=== PATIENT | female | born 1990 ===

== ENCOUNTER 2017-04-01 15:01 | Inpatient (IN) ==
[2017-04-01] MEDS ORDERED: ONDANSETRON 4 MG/2 ML VIAL IV PRN (15:16)
[2017-04-01] MEDS ORDERED: MEPERIDINE 50 MG/1 ML VIAL IV PRN (15:16)
[2017-04-01] MEDS ORDERED: DINOPROSTONE VAG GEL 10 MG SYRINGE VAG ONE (15:29)
[2017-04-01 15:32] LABS: Basophils % 0.4 % (0.0-0.8); Eosinophils % 0.4 % (0.00-10.9); Hematocrit 38.1 VOL% (35.7-47.0); Hemoglobin 13.3 GM/DL (12.0-16.0); Immature Granulocytes % 0.7 %; Immature Granulocytes Absolute 0.08 #; Lymphocytes # 2.1 10*3/uL (1.4-4.0); Mean Corpuscular HGB Conc 34.9 GM/DL (32-36); Mean Corpuscular Hemoglobin 31 PG (27-34); Mean Platelet Volume 9.6 FL (9.6-12.0); Monocytes # 0.5 10*3/uL (0.11-0.8); Monocytes % 4.2 % (1.7-12.7); Neutrophils # 8.4 10*3/uL (1.4-7.4); Neutrophils % 75.3 % (38.7-73.9); Platelet Count 219 T/CUMM (130-400); Red Blood Count 4.33 MC/CUMM (3.8-5.5); Red Cell Distribution Width 13.5 % (9.3-17.3); White Blood Count 11.1 T/CUMM (4-12)
[2017-04-01] MEDS: LACTATED RINGERS 1,000 ML IV SCH ×2 (15:45→21:22)
[2017-04-01 15:56] LABS: Albumin 2.9 G/DL (3.4-5.0); Bilirubin,Total 0.7 MG/DL (0.2-1.0); Calcium 8.8 MG/DL (8.5-10.1); Osmolality,Calculated 272.7 MOS/KG (273-304); Potassium 4.1 MMOL/L (3.5-5.1); Total Protein 6.2 G/DL (6.4-8.3); Uric Acid 4.7 MG/DL (2.6-6.0)
--- NOTE | 2017-04-01 18:44 | OB/GYN History & Physical ---
History of Present Illness Chief complaint: M for elective induction of labor due to term at 39 weeks. History of present illness: Ms. Blanc is a 26 year old female primigravida who presented to the labor department for elective induction of labor due to term at 39 weeks. Her JAZ is 04/08/2017 estimated gestational age of 39 weeks. The risk and benefits has been thoroughly discussed with this patient and significant other, plan of care has been discussed with Dr. Wood and all parties are in agreement with plan. The patient began her care at the [facility] and the [facility]. She received routine care and her course was uneventful. labs: She is O+, RPR is nonreactive, rubella is immune, Pap smear is within normal limits, hepatitis B negative, HIV negative, GBS culture negative. Review of systems is negative with exception of above. Home Medications Medication Instructions Recorded Confirmed Type Ferrous Sulfate [Iron] 325 mg PO DAILY 04/01/17 04/01/17 History Vit No.130/Iron/Folic 1 each PO DAILY 04/01/17 04/01/17 History [ Vitamins] Allergies Allergy/AdvReac Type Severity Reaction Status Date / Time No Known Allergies Allergy Verified 04/01/17 15:16 12 point system: reviewed and no additional remarkable complaints except as stated Medical,Surgical,& Family Hx - Medical History Respiratory: History of: Asthma (Exercise-induced only) Reproductive: No history of: Complication - Surgical History Cardiac Surgeries: Patient Denies: Cardiac Catheterization Neurologic Surgeries: Patient denies: Neurologic Surgery Abdominal Surgeries: Surgical HX of: Abdominal Surgery (She had colon surgery as an infant, but does not know the reason why.) Additional Surgical History: Patient received back surgery when she was the infant. However, she is unaware of the type of condition she had that required this type of surgery. 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 - Constitutional Vitals: Vital Signs Temp Pulse Resp BP Pulse Ox 04/01/17 16:00 96.5 F L 91 H 18 119/68 99 General appearance: no acute distress - Respiratory Respiratory exam: Present: clear to auscultation bilaterally - Cardiovascular Cardiovascular exam: Present: regular rate and rhythm - GI/Abdominal GI/Abdominal exam: Present: normal bowel sounds, soft - Extremities Exam Extremities exam: Present: normal inspection - Back Exam Back exam: Present: normal inspection - Neurological Exam Neurological exam: Present: alert, oriented X3 - Psychiatric Psychiatric exam: Present: normal affect, normal mood - Skin Skin exam: Present: normal color, warm Assessment and Plan (1) 39 weeks gestation of Status: Acute Assessment and plan: Admit IV fluids Prostin gel per protocol IV Pitocin per protocol if indicated Epidural anesthesia if desired Please rupture membranes when appropriate Anticipate Current Visit: Yes Results - Labs CBC & BMP: 04/01/17 15:26 04/01/17 15:26
[2017-04-01] MEDS ORDERED: hydrOXYzine HCL 25 MG/1 ML VIAL IM PRN (21:47)
[2017-04-01] MEDS ORDERED: diphenhydrAMINE 50 MG/1 ML VIAL IV PRN (21:47)
[2017-04-01] MEDS ORDERED: CITRIC ACID/SODIUM CITRATE 30 ML UDCUP PO ONE (21:47)
[2017-04-01] MEDS ORDERED: PROMETHAZINE 25 MG/1 ML VIAL IM ONE (21:47)
[2017-04-01] MEDS ORDERED: fentaNYL 2 MCG/ROPIV 0.2% EPID 150 ML EPIDURAL SCH (21:47)
[2017-04-01] MEDS ORDERED: ePHEDrine 50 MG/ML AMP IV PRN (21:47)
[2017-04-01] MEDS ORDERED: FAMOTIDINE 20 MG/2 ML VIAL IV ONE (21:47)
[2017-04-01 22:17] LABS: Basophils % 0.3 % (0.0-0.8); Eosinophils # 0.1 10*3/uL (0.0-0.87); Eosinophils % 0.8 % (0.00-10.9); Hemoglobin 12.8 GM/DL (12.0-16.0); Immature Granulocytes % 0.9 %; Immature Granulocytes Absolute 0.08 #; Lymphocytes # 2.4 10*3/uL (1.4-4.0); Mean Corpuscular HGB Conc 34.6 GM/DL (32-36); Mean Corpuscular Hemoglobin 31 PG (27-34); Mean Corpuscular Volume 88.3 FL (87-102); Mean Platelet Volume 9.7 FL (9.6-12.0); Monocytes # 0.6 10*3/uL (0.11-0.8); Monocytes % 6.7 % (1.7-12.7); Neutrophils # 5.7 10*3/uL (1.4-7.4); Neutrophils % 64.3 % (38.7-73.9); Platelet Count 211 T/CUMM (130-400); Red Blood Count 4.19 MC/CUMM (3.8-5.5); Red Cell Distribution Width 13.4 % (9.3-17.3); White Blood Count 8.9 T/CUMM (4-12)
[2017-04-02] MEDS ORDERED: OXYTOCIN/LR 20 UNIT/1,000 ML BAG IV SCH (02:00)
[2017-04-02] MEDS: LACTATED RINGERS 1,000 ML IV SCH (03:00)
--- NOTE | 2017-04-02 09:28 | Event Note ---
Ms. Blanc is 1 cm dilated still about 50% effaced vertex presenting at -3 station. However because of a surgery the patient had as an infant anesthesia was unable to insert an epidural. Therefore the patient desires an elective section due to the fact that she cannot receive an epidural. Will obtain informed consent for the same. Dr. Wood and the patient are all in agreement with plan of care.
[2017-04-02] MEDS ORDERED: FAMOTIDINE 20 MG/2 ML VIAL IV ONE (09:31)
[2017-04-02] MEDS ORDERED: CITRIC ACID/SODIUM CITRATE 30 ML UDCUP PO ONE (09:31)
[2017-04-02] MEDS ORDERED: OXYTOCIN/LR 30 UNIT/1,000 ML BAG IV ONE (09:31)
[2017-04-02] MEDS ORDERED: OXYTOCIN 10 UNIT/ML VIAL IM ONE (09:31)
[2017-04-02] MEDS ORDERED: ceFAZolin 2,000 MG in PREMIX 1 EACH IV ONE (09:32)
[2017-04-02] MEDS ORDERED: SUCCINYLCHOLINE 200 MG/10 ML VIAL ONE (12:33)
[2017-04-02] MEDS ORDERED: PROPOFOL 200 MG/20 ML VIAL IV ONE (12:33)
[2017-04-02] MEDS ORDERED: LIDOCAINE 2% 5 ML VIAL ONE (12:33)
[2017-04-02] MEDS ORDERED: ONDANSETRON 4 MG/2 ML VIAL ONE (12:33)
[2017-04-02] MEDS ORDERED: METHYLERGONOVINE 0.2 MG/1 ML AMP ONE (13:07)
[2017-04-02] MEDS ORDERED: HYDROmorphone 2 MG/1 ML VIAL IV PRN (13:41)
[2017-04-02] MEDS ORDERED: fentaNYL 100 MCG/2 ML VIAL ONE (13:43)
--- NOTE | 2017-04-02 13:43 | Operative Note ---
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 Anesthesia:[] General anesthesia Estimated blood loss: [] Surgeon: Dr. Wood Findings: [] Female , 7 lbs. 10 oz., Apgars were 7 at 1 minute 8 at 5 minutes, cord blood and cord gas obtained, delivery time was 1304 Complications: None Procedure: Low transverse section The patient was taken to the operating suite heart tones were obtained prior to and after regional anesthesia was obtained. She was placed in supine position her abdomen was prepped and draped in usual manner for major abdominal surgery. Through an abdominal incision the skin, subcutaneous, fascial layer and peritoneal the abdomen was entered. The bladder flap was created and a low transverse incision was made.. Fluid was clear and normal amount X, Apgars, the placenta was delivered and sent to lab for further evaluation. Injected with intrauterine Pitocin. The first layer of the uterus was closed with #1 Vicryl in a continuous locking manner. Close to imbricate the first layer with #1 Vicryl. The peritoneum was approximated with #2-0 Vicryl.[] All the last sponges and instruments were accounted for -2.) #2-0 Vicryl. Fascia was approximated with #0-0 Maxon.. The skin was approximated with miki. She tolerated procedure well and was taken to recovery room in stable condition. Surgeon / Physician: Tawny Wood Results - Labs CBC & BMP: 04/01/17 22:02 04/01/17 15:26 Discharge Plan - Discharge Medications No Action Vit No.130/Iron/Folic [ Vitamins] 1 each PO DAILY Ferrous Sulfate [Iron] 325 mg PO DAILY - Follow Up or Referral - Forms/Instructions
[2017-04-02] MEDS ORDERED: OXYTOCIN/LR 20 UNIT/1,000 ML BAG IV ONE (13:44)
[2017-04-02] MEDS ORDERED: IBUPROFEN 800 MG TABLET PO PRN (13:44)
[2017-04-02] MEDS ORDERED: ACETAMINOPHEN 325 MG TABLET PO PRN (13:44)
[2017-04-02] MEDS ORDERED: MIDAZOLAM 2 MG/2 ML VIAL ONE (13:44)
[2017-04-02] MEDS ORDERED: ONDANSETRON 4 MG/2 ML VIAL IV PRN (13:44)
--- NOTE | 2017-04-02 13:52 | Anesthesia Post-Op ---
Anesthesia Post OP - Post Ansesthetic Evaluation Patient seen in post op: Yes Resp: within normal limits CV: within normal limits Mental: within normal limits Temp: within normal limits [id number]: within normal limits Nausea and Vomiting: within normal limits Pain: within normal limits
[2017-04-02] MEDS ORDERED: LACTATED RINGERS 1,000 ML IV SCH (14:00)
[2017-04-02] MEDS ORDERED: RHO(D) IMMUNE GLOBULIN 300 MCG SYRINGE IM ONE (14:00)
[2017-04-02 14:12] LABS: Apearance,Urine CLEAR (Clear); Bacteria,Urine Occasional /HPF (Few); Bilirubin,Urine Negative (Negative); Blood, Urine Negative (Negative); Glucose,Urine (UA) Negative (Negative); Hyaline Casts,Urine 1 /LPF (0-3); Ketones,Urine 80 mg/dL (Negative); Mucus,Urine Occasional /LPF (Occasional); Nitrite,Urine Negative (Negative); Protein,Urine Negative; RBC,Urine 2 /HPF (0-4); Squamous Epithelial Cell,Urine Occasional /HPF (0-10); Urine Color Yellow (Yellow); Urine Specific Gravity 1.019 (1.001-1.035); WBC,Urine <1 /HPF (0-6)
[2017-04-02] MEDS ORDERED: NALOXONE 0.4 MG/ML VIAL IV PRN (16:16)
[2017-04-02] MEDS ORDERED: HYDROmorphone PCA 30 MG/30 ML SYRINGE IV SCH (16:30)
[2017-04-03] MEDS: DOCUSATE SODIUM 100 MG CAPSULE PO SCH ×3 (06:32→20:01)
[2017-04-03 06:47] LABS: Basophils % 0.3 % (0.0-0.8); Eosinophils # 0.1 10*3/uL (0.0-0.87); Eosinophils % 0.4 % (0.00-10.9); Hematocrit 27.3 VOL% (35.7-47.0); Immature Granulocytes % 0.5 %; Immature Granulocytes Absolute 0.06 #; Lymphocytes # 2.2 10*3/uL (1.4-4.0); Lymphocytes % 18.7 % (21.3-54.2); Mean Corpuscular HGB Conc 34.4 GM/DL (32-36); Mean Corpuscular Hemoglobin 31 PG (27-34); Mean Corpuscular Volume 88.9 FL (87-102); Mean Platelet Volume 9.7 FL (9.6-12.0); Monocytes # 0.8 10*3/uL (0.11-0.8); Monocytes % 6.8 % (1.7-12.7); Neutrophils # 8.5 10*3/uL (1.4-7.4); Neutrophils % 73.3 % (38.7-73.9); Platelet Count 176 T/CUMM (130-400); Red Cell Distribution Width 13.7 % (9.3-17.3)
[2017-04-03 06:56] LABS: Hemoglobin 9.4 GM/DL (12.0-16.0); Red Blood Count 3.07 MC/CUMM (3.8-5.5); White Blood Count 11.6 T/CUMM (4-12)
[2017-04-03] MEDS: MULTIVITAMIN (PRENATAL) TABLET PO SCH (08:40)
--- NOTE | 2017-04-03 09:10 | OB/GYN Progress Note ---
Assessment and Plan (1) 39 weeks gestation of Status: Acute Assessment and plan: Admit IV fluids Prostin gel per protocol IV Pitocin per protocol if indicated Epidural anesthesia if desired Please rupture membranes when appropriate Anticipate Current Visit: Yes (2) Status post primary low transverse section Status: Acute Assessment and plan: Initiate routine post op orders. 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 Bonding well with Exam SEED CLEANING MANAGER - Constitutional Vitals: Vital Signs Temp Pulse Resp BP Pulse Ox 04/03/17 08:00 101 H 18 04/03/17 07:42 97.8 F 101 H 18 121/71 97 04/03/17 04:00 98 F 112 H 18 129/61 95 04/03/17 03:00 18 04/03/17 00:00 98.4 F 90 18 131/70 98 04/02/17 20:10 97.9 F 90 18 121/73 98 General appearance: no acute distress - Antepartum / Post Post Exam Breast: bilateral: normal Abdomen obstetrics: Present: bowel sounds normal Vagina: Present: normal moisture, discharge Cervix: Present: normal Uterus exam: Present: enlarged (Fundus firm midline) Anus/Rectum: Present: normal perianal skin - Gyencological / Post Surgical Post Surgical Exam Lungs: bilateral: normal Chest: Normal S1, Normal S2 Extremities SEED CLEANING MANAGER: Present: normal Abdomen obstetrics progress note: Present: normal appearance Incision OB: Present: normal, intact - Head Head exam: Present: normal inspection - Respiratory Respiratory exam: Present: clear to auscultation bilaterally - Cardiovascular Cardiovascular exam: Present: regular rate and rhythm - GI/Abdominal GI/Abdominal exam: Present: normal bowel sounds, soft - Extremities Exam Extremities exam: Present: normal inspection - Back Exam Back exam: Present: normal inspection - Neurological Exam Neurological exam: Present: alert, oriented X3 - Psychiatric Psychiatric exam: Present: normal affect, normal mood - Skin Skin exam: Present: normal color, warm Results - Labs CBC & BMP: 04/03/17 06:13 04/01/17 15:26
[2017-04-03] MEDS: FERROUS SULFATE 325 MG TABLET PO SCH ×2 (09:51→21:00)
[2017-04-03] MEDS: SIMETHICONE CHEW 80 MG TABLET PO PRN (19:55)
[2017-04-03] MEDS: MAGNESIUM HYDROXIDE SUSP 30 ML UDCUP PO PRN (19:55)
[2017-04-04] MEDS: MULTIVITAMIN (PRENATAL) TABLET PO SCH (09:04)
[2017-04-04] MEDS: SIMETHICONE CHEW 80 MG TABLET PO PRN ×2 (09:04→20:54)
[2017-04-04] MEDS: FERROUS SULFATE 325 MG TABLET PO SCH ×2 (09:04→20:54)
[2017-04-04] MEDS: MAGNESIUM HYDROXIDE SUSP 30 ML UDCUP PO PRN ×2 (09:04→20:54)
[2017-04-04] MEDS: DOCUSATE SODIUM 100 MG CAPSULE PO SCH ×2 (09:04→20:54)
--- NOTE | 2017-04-04 11:25 | OB/GYN Progress Note ---
Assessment and Plan (1) 39 weeks gestation of Status: Acute Assessment and plan: Admit IV fluids Prostin gel per protocol IV Pitocin per protocol if indicated Epidural anesthesia if desired Please rupture membranes when appropriate Anticipate Current Visit: Yes (2) Status post primary low transverse section Status: Acute Assessment and plan: Initiate routine post op orders. 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 Bonding well with . Exam PRINT INSPECTOR - Constitutional Vitals: Vital Signs Temp Pulse Resp BP Pulse Ox 04/04/17 07:27 97.3 F L 90 20 129/71 97 04/04/17 06:43 18 04/04/17 06:00 18 04/04/17 05:00 18 04/04/17 04:00 96.8 F L 78 18 120/59 98 04/04/17 03:00 18 04/04/17 01:00 18 04/04/17 00:00 98.2 F 89 18 114/61 96 04/03/17 23:00 18 04/03/17 20:00 98.2 F 100 H 18 115/65 99 04/03/17 16:00 97.7 F 88 20 127/62 98 04/03/17 11:46 98.9 F 95 H 18 121/68 98 General appearance: no acute distress - Antepartum / Post Post Exam Breast: bilateral: normal Abdomen obstetrics: Present: bowel sounds normal Vagina: Present: normal moisture, discharge (light lochia rubra) Uterus exam: Present: enlarged (FF ml) Anus/Rectum: Present: normal perianal skin - Gyencological / Post Surgical Post Surgical Exam Lungs: bilateral: normal Chest: Normal S1, Normal S2 Extremities PRINT INSPECTOR: Present: normal Abdomen obstetrics progress note: Present: normal appearance Incision OB: Present: normal, intact - Respiratory Respiratory exam: Present: clear to auscultation bilaterally - Cardiovascular Cardiovascular exam: Present: regular rate and rhythm - GI/Abdominal GI/Abdominal exam: Present: normal bowel sounds, soft - Extremities Exam Extremities exam: Present: normal inspection - Back Exam Back exam: Present: normal inspection - Neurological Exam Neurological exam: Present: alert, oriented X3 - Psychiatric Psychiatric exam: Present: normal affect, normal mood - Skin Skin exam: Present: normal color, warm Results - Labs CBC & BMP: 04/03/17 06:13 04/01/17 15:26
[2017-04-04] MEDS ORDERED: BISACODYL 10 MG SUPP RECTAL PRN (20:47)
[2017-04-05] MEDS: MULTIVITAMIN (PRENATAL) TABLET PO SCH (08:38)
[2017-04-05] MEDS: DOCUSATE SODIUM 100 MG CAPSULE PO SCH (08:38)
[2017-04-05] MEDS: FERROUS SULFATE 325 MG TABLET PO SCH (08:38)
[2017-04-05] MEDS ORDERED: DIPH/TET/ACEL PERT BOOSTER VACCINE 0.5 ML VIAL IM ONE (08:43)
[2017-04-05 12:53] VITALS: BP 120/67
--- NOTE | 2017-04-05 13:13 | Discharge Summary ---
Hospital Course - Hospital Course Hospital Course: day #2 Status post section secondary to an elective section secondary to a tethered spinal cord at the time of . Patient has no neurological damage from her surgeries at the time of . Patient elected to perform a section because of the inability to obtain adequate pain control during her labor process. Risks and benefits were thoroughly discussed with her and she was in full agreement. Presently she is doing well ambulating , voiding well, multiple bowel movements, and pain is well controlled. Will follow up in our office in 2 week Specialty Discharge - Follow Up or Referrals Follow up with: Tawny Wood MD [Physician] - 04/17/17 2:00 pm Discharge Plan - Discharge Data Disposition: Disch To Home/Self Care Condition at Discharge: Stable Discharge Diet: advance to your usual diet Activity: increase activity as tolerated Hygiene: may shower Driving: not until seen by doctor Contact your physician if you experience:: fever over 101, Bleeding - Discharge Medications New Ferrous Sulfate Tab [Feosol Original Tab] 325 mg PO BID #60 tablet HYDROcodone/ACETAMIN 5-325 [Garibaldi 5-325] 1 tablet PO Q6H PRN #30 tablet PRN Reason: Pain Moderate (4-7) Ibuprofen Tab [Motrin Tab] 800 mg PO Q8H PRN #60 tablet PRN Reason: Pain Severe (8-10) No Action Vit No.130/Iron/Folic [ Vitamins] 1 each PO DAILY Ferrous Sulfate [Iron] 325 mg PO DAILY - Follow Up or Referral Follow Up: Tawny Wood MD [Physician] - 04/17/17 2:00 pm - Forms/Instructions Instructions: Section (DC), Depression (GEN), Perineal Care (DC), Bleeding (DC) Exam - Constitutional Vitals: Period Temp Pulse Resp BP Sys/Terry Pulse Ox Last 24 Hr 96.9 F-98.4 F 80-103 18-20 116-130/64-81 97-100 DS: Provider Date of admission: 04/01/17 15:16 Primary care physician: Keith Hoffman MD Attending physician on admission: Tawny Wood MD Consults: 04/01/17 15:16 Consult to Anesthesiology [CONS] Routine Consulting Provider: Reason for Anesthesiology: Epidural Consult Comment: Epidural for pain managment 04/02/17 13:44 Consult to Fruit Harvester [CONS] Routine Consult Fruit Harvester: Breast Feeding Discharging clinician: Tawny Wood MD
== END 2017-04-05 13:55 | disposition home or self-care (01) | DRG 540 ==
LOC: N.LDOUT 15:01 → N.LD 15:05 → N.OB 04-02 20:03
PROVIDERS: ADMIT Obstetrics & Gynecology; ATTEND Obstetrics & Gynecology
PROC: LDCSECT (ICD-10-PCS; 2017-04-02 08:00)